=== PATIENT | male | born 1965 | race Caucasian/White ===

== ENCOUNTER 2019-06-17 11:37 | Observation (INO) ==
[2019-06-17] MEDS ORDERED: ZOFRAN IV ONE (11:45)
--- NOTE | 2019-06-17 11:50 | PROVIDER DOCUMENTATION ---
HPI-Abdominal Pain/GI Problem - General Chief Complaint: Nausea/Vomiting Stated Complaint: N/V AND ABD PAIN Time Seen by Provider: 06/17/19 11:40 Source: patient Allergies/Adverse Reactions: Patient Allergies Allergy/AdvReac Type Severity Reaction Status Date / Time No Known Allergies Allergy Verified 06/17/19 12:14 Home Medications: Home Medication List Medication Instructions Recorded Confirmed Last Taken Type Aspirin 81 mg PO DAILY 06/17/19 06/17/19 06/17/19 History Atorvastatin Calcium [Lipitor] 20 mg PO DAILY 06/17/19 06/17/19 06/17/19 History Carvedilol [Coreg] 6.25 mg PO BID 06/17/19 06/17/19 06/17/19 History Clopidogrel Bisulfate [Clopidogrel] 75 mg PO DAILY 06/17/19 06/17/19 06/17/19 History Isosorbide Mononitrate [Isosorbide 30 mg PO QHS 06/17/19 06/17/19 06/16/19 History Mononitrate ER] Naltrexone HCl 50 mg PO DAILY 06/17/19 06/17/19 06/17/19 10:00 History Pantoprazole Sodium 40 mg PO QAM 06/17/19 06/17/19 06/17/19 History - History of Present Illness-ABD Nature of Presenting Problems: 54 YOM PRESENTS WITH C/O N/V/D AND ABDOMINAL PAIN AFTER TAKING NEW MEDICATION NALTREXONE. HE DID DRINK LAST NIGHT BUT REPORTS HE STOPPED AT 630 PM. HE DENIES CP, SOB, FEVER, CHILLS Abdominal Pain Onset Location: reports: generalized abdomen Pain Radiation: reports: no radiation Quality of Pain: reports: aching Severity in ED: reports: moderate Onset/Duration: reports: 4-6 hours ago Timing: reports: still present Activities at Onset: reports: other (NEW MEDICATIONS) Exposure to sick contacts?: No Modifying Factors: improves with: nothing Associated Symptoms: reports: diarrhea, vomiting Last BM: this morning Dark Stools Present?: reports: none noticed Rectal Bleeding: reports: none # of Diarrhea Episodes: 3 Rectal Pain: reports: none # of Vomiting Episodes: 6 Emesis Description: reports: none Bruising or Bleeding Gums?: No Similar Symptoms Previously?: No Recently seen or treated by another doctor?: No Review of Systems - Adult - REVIEW OF SYSTEMS - ADULT Constitutional: reports: no symptoms reported. denies: see HPI, chills, fever, fatique, night sweats, weight gain, weight loss, other Eyes: reports: no symptoms reported. denies: see HPI, discharge, dry eyes, decreased vision, blurred vision, double vision, eye pain, redness, other Ears, Nose, Mouth & Throat: reports: no symptoms reported. denies: see HPI, ear discharge, ear pain, hearing loss, tinnitus, epistaxis, sinus problem, nose pain, loose teeth, mouth/dental pain, mouth swelling, hoarseness, throat pain, throat swelling, other Cardiovascular: reports: no symptoms reported. denies: see HPI, chest pain, edema, heart murmur, irregular heart rate, orthopnea, palpitations, poor circulation, PND, syncope, other Respiratory: reports: no symptoms reported. denies: see HPI, chronic cough, cough, dyspnea on exertion, excessive sputum production, hemoptysis, pleurisy, shortness of breath, wheezing, other Gastrointestinal: reports: see HPI, abdominal pain, diarrhea, nausea, vomiting. denies: no symptoms reported, hematemesis, constipation, difficulty swallowing, frequent heartburn, poor appetite, rectal bleeding, other Genitourinary: reports: no symptoms reported. denies: see HPI, dysuria, discharge, frequency, flank pain, frequent UTI's, hematuria, hesitency, incontinence, urinary retention, urgency, other Musculoskeletal: reports: no symptoms reported. denies: see HPI, bone pain, back pain, frequent leg cramps, joint pain, joint swelling, muscle aches, muscle weakness, neck pain, other Integumentary: reports: no symptoms reported. denies: see HPI, hives, hair loss, itching, mole changes, nail changes, rash, skin sores/ulcer, skin thickening, other Neurological: reports: no symptoms reported. denies: see HPI, ataxia, dizziness/vertigo, headache/migraines, loss of balance, numbness, paresthesia, seizure, slurred speech, syncope, tremors, other Psychiatric: reports: no symptoms reported. denies: see HPI, anxiety, anti- depressant use, alcohol/drug dependence, depression, emotional problems, insomnia, panic attacks, suicidal thoughts, other Endocrine: reports: no symptoms reported. denies: see HPI, change in skin pigment, excessive sweating, goiter, cold intolerance, heat intolerance, increased hunger, increased thirst, polyuria, other Hematologic/Lymphatic: reports: no symptoms reported. denies: see HPI, blood clots, easy bruising, low blood count, lymphedema, prolonged bleeding, swollen lymph nodes, transfusions, other Allergic/Immunologic: reports: no symptoms reported. denies: see HPI, allergic reactions, allergic rhinitis, asthma, eczema, food allergy, frequent infections, hay fever, hives, positive PPD, urticaria, other Past History - Adult - PAST MEDICAL HISTORY-ADULT Review of Records: reports: Nursing Assessment Review, Social history reviewed & non-contributory. Major Childhood Illnesses: reports: Polio Cardiovascular: reports: CAD Respiratory: reports: COPD, other (pneumothorax) Gastrointestinal: reports: GERD Obstetrical/Gynecological: reports: denies history Genitourinary: reports: denies history Musculoskeletal: reports: denies history Neurological: reports: denies history Psychiatric: reports: denies history Endocrine/Immune: reports: denies history Other Conditions: reports: denies history - PRIOR SURGERIES/PROCEDURES Surgical/Procedure History: reports: appendectomy, orthopedic (extremity) (bilat feet), other (fempop bypass) - IMMUNIZATION STATUS Childhood Immunizations: See Nurse Assessment Flu Vaccine: See Nurse Assessment - FAMILY HISTORY Family History: reviewed, not pertinent Physical Exam-General - PHYSICAL EXAM-ADULT Initial Vital Signs Reviewed: Yes - CONSTITUTIONAL General Appearance: alert, no apparent distress - EYES Eyes: PERRL/EOMI - HEAD, EARS, NOSE, MOUTH & THROAT HENMT: normocephalic/atraumatic, moist mucous membranes, normal ENT inspection - NECK Neck: non-tender, full range of motion, supple - RESPIRATORY Respiratory: chest non-tender, lungs clear - CARDIOVASCULAR Cardiovascular: normal peripheral pulses, regular rate, rhythm - GASTROINTESTINAL (ABDOMEN) Abdominal Exam: normal bowel sounds, soft, tenderness (GENERALIZED) - LYMPHATIC Lymphatic: no adenopathy - MUSCULOSKELETAL Back Exam: normal inspection Extremity: normal range of motion, non-tender, normal gait - SKIN Integumentary: normal color, normal turgor, warm/dry - NEUROLOGIC Neurologic: grossly normal - PSYCHIATRIC Psych/Mental Status: normal mood/affect, oriented x 3 Progress - PLAN OF CARE/RESULTS Progress/Plan/Lab Results: Vital Signs - 8 hr 06/17/19 11:40 Temperature 98.3 F Pulse Rate 94 H Respiratory Rate 18 Blood Pressure 120/98 O2 Sat by Pulse Oximetry 100 Orders Category Date Time Status ALCOHOL BLOOD Stat Lab 06/17/19 11:44 Uncollected CBC WITH ELECTRONIC DIFF [HEME] Stat Lab 06/17/19 11:44 Uncollected COMPREHENSIVE METABOLIC PANEL [CHEM] Stat Lab 06/17/19 11:44 Uncollected PROTIME WITH INR [COAG] Stat Lab 06/17/19 11:44 Uncollected PTT [COAG] Stat Lab 06/17/19 11:44 Uncollected Ondansetron [Zofran] Med 06/17/19 11:45 Once 4 mg IV NOW ONE Result Diagrams: 06/17/19 12:22 06/17/19 12:22 - XRAY 1 XRAY Study: Chest Impression: See EMR Report (EXAM: CHEST-2 VIEWS 06/17/2019 HISTORY: COUGH TECHNIQUE: PA and lateral chest COMMENT: There is apical pleural scarring bilaterally. This was present at the time the previous study. There are surgical clips in the right upper chest. These were not present on 10/21/2017. There is apparent COPD. There are granulomata in the right upper lobe and left lower lobe. IMPRESSION: COPD. Electronically signed by Mushtaq Marcus 06/17/2019 2:14 PM) - CT/MRI 1 CT Study: Abdomen, Pelvis Impression: See EMR Report (EXAM: CT ABD/PELVIS W/IV CONT ONLY 06/17/2019 HISTORY: abd pain, TENDERNESS, WBC TECHNIQUE: This exam was performed using automated exposure control, adjustment of mA or kV according to patient size, and/or use of iterative reconstruction technique. COMMENT: There are emphysematous changes in both lung bases. There is a granuloma in the left lower lobe. The appearance of the visualized portion of the chest has not changed significantly since 05/15/2018. There are granulomata in the spleen. The adrenal glands and pancreas are within normal limits. There are no apparent gallstones. The liver is stable in appearance. There may be some fatty change. There are severe atherosclerotic calcifications and noncalcified plaque formation in the infrarenal abdominal aorta. There is occlusion of the common iliac artery on the right and a stent is present in the left common iliac which appears to be patent. These findings were also present on the previous study. Both renal arteries are patent. There is no evidence of hydronephrosis. There is a cortical cyst in the lower pole of the left kidney. The superior mesenteric artery is pa tent as is the celiac artery. There is a small splenule near the inferior tip of the spleen. There is apparent generalized mucosal thickening in the colon. The colon is not distended. There has been previous appendectomy. Pelvis: There is a right axillary femoral graft. This is patent. There is no evidence of free fluid. The urinary bladder is not distended. There is no evidence of significant adenopathy. The regional skeleton is intact. IMPRESSION: Severe atherosclerotic changes as described. Apparent colitis. Electronically signed by Mushtaq Marcus 06/17/2019 2:05 PM) Departure - Departure Date of Disposition Decision: 06/17/19 Time of Disposition Decision: 14:42 DIAGNOSIS: Colitis Disposition: ADMITTED INPATIENT 09 Certified Medical Emergency: Emergent Condition: Stable - Critical Care Note This patient required my direct & personal management of CC.: No Attestation - Physician/ MARVA Attestation Patient care was provided by Advanced Practice Provider:: Yes Advanced Practice Provider:: Mariam Lindquist Advanced Practice Provider documentation review:: The Mid-level provider documentation, treatment plan and medical decision making was reviewed by the physician who agrees with all treatment and medical decision making by the P. The physician spent face to face time with patient:: No Advanced Practice Provider documentation review:: Supervising physician onsite and consulted in the evaluation and care of this patient. The physician did not have a face to face encounter with the patient.
[2019-06-17 12:33] LABS: BASO# 0.03 X1000 (0.0-0.2); BASO% 0.2 % (0.0-0.8); EOS# 0.16 X1000 (0.0-0.7); HEMATOCRIT 44.7 % (42.0-52.0); HEMOGLOBIN 15.3 g/dL (14.0-18.0); IMM GRAN# 0.05 X1000 (0.0-0.04); IMM GRAN% 0.3 % (0.0-0.5); LYMPH# 1.34 X1000 (1.2-3.4); LYMPH% 8.4 % (20.5-51.1); MCH 30.4 PG (27-31); MCHC 34.2 g/dL (33-37); MCV 88.9 FL (81-99); MONO# 1.14 X1000 (0.11-0.59); MONO% 7.1 % (1.7-9.3); MPV 9.6 FL (7.4-10.4); NEUT# 13.31 X1000 (1.4-6.5); PLT 234 X1000 (130-400); RBC 5.03 XMIL (4.7-6.1); RDW 18.4 % (11.5-14.5); WBC 16.03 X1000 (4.8-10.8)
[2019-06-17 12:54] LABS: INR 1.03
[2019-06-17 12:55] LABS: PTT 31.4 Seconds (22.3-41.8)
[2019-06-17 13:00] LABS: AGAP 14; ALBUMIN 4.2 g/dL (3.5-5.0); ALKALINE PHOSPHATASE 187 U/L (32-122); BUN 4 mg/dL (8-22); CHLORIDE 101 mmol/L (98-107); COSMO 281; CREATININE 0.5 mg/dL (0.7-1.2); ESTIMATED GFR > 60; GLUCOSE 145 mg/dL (70-104); GOT 98 U/L (10-34); GPT 49 U/L (10-44); POTASSIUM 3.6 mmol/L (3.5-5.1); SODIUM 141 mmol/L (136-145); TCO2 26 mmol/L (25-35); TOTAL PROTEIN 7.4 g/dL (6.3-8.3)
[2019-06-17] MEDS ORDERED: IMODIUM PO ONE (13:46)
--- NOTE | 2019-06-17 14:07 | Diag Imaging Result Doc PS360 ---
EXAM: CT ABD/PELVIS W/IV CONT ONLY 06/17/2019 HISTORY: abd pain, TENDERNESS, WBC TECHNIQUE: This exam was performed using automated exposure control, adjustment of mA or kV according to patient size, and/or use of iterative reconstruction technique. COMMENT: There are emphysematous changes in both lung bases. There is a granuloma in the left lower lobe. The appearance of the visualized portion of the chest has not changed significantly since 05/15/2018. There are granulomata in the spleen. The adrenal glands and pancreas are within normal limits. There are no apparent gallstones. The liver is stable in appearance. There may be some fatty change. There are severe atherosclerotic calcifications and noncalcified plaque formation in the infrarenal abdominal aorta. There is occlusion of the common iliac artery on the right and a stent is present in the left common iliac which appears to be patent. These findings were also present on the previous study. Both renal arteries are patent. There is no evidence of hydronephrosis. There is a cortical cyst in the lower pole of the left kidney. The superior mesenteric artery is patent as is the celiac artery. There is a small splenule near the inferior tip of the spleen. There is apparent generalized mucosal thickening in the colon. The colon is not distended. There has been previous appendectomy. Pelvis: There is a right axillary femoral graft. This is patent. There is no evidence of free fluid. The urinary bladder is not distended. There is no evidence of significant adenopathy. The regional skeleton is intact. IMPRESSION: Severe atherosclerotic changes as described. Apparent colitis. Electronically signed by Mushtaq Marcus 06/17/2019 2:05 PM
--- NOTE | 2019-06-17 14:16 | Diag Imaging Result Doc PS360 ---
EXAM: CHEST-2 VIEWS 06/17/2019 HISTORY: COUGH TECHNIQUE: PA and lateral chest COMMENT: There is apical pleural scarring bilaterally. This was present at the time the previous study. There are surgical clips in the right upper chest. These were not present on 10/21/2017. There is apparent COPD. There are granulomata in the right upper lobe and left lower lobe. IMPRESSION: COPD. Electronically signed by Mushtaq Marcus 06/17/2019 2:14 PM
[2019-06-17] MEDS ORDERED: FLAGYL 500 MG/NS 500 MG/100 ML IVPB IV ONE (14:29)
[2019-06-17] MEDS ORDERED: CIPRO 400 MG/D5W 400 MG/200 ML IVPB IV SCH (14:30)
[2019-06-17] MEDS ORDERED: CIPRO 400 MG/D5W 400 MG/200 ML IVPB IV ONE (14:44)
[2019-06-17] MEDS ORDERED: NS 1,000 ML IV ONE (14:44)
[2019-06-17] MEDS: CIPRO 400 MG/D5W 400 MG/200 ML IVPB IV SCH (15:05)
[2019-06-17 15:31] LABS: BILIRUBIN URINE 1+ (NEGATIVE); BLOOD URINE NEGATIVE (NEGATIVE); CLARITY SL. CLOUDY (CLEAR); COLOR AMBER; GLUCOSE URINE NEGATIVE (NEGATIVE); KETONE URINE TRACE mg/dL (NEGATIVE); LEUKOCYTES URINE TRACE (NEGATIVE); NITRITE URINE NEGATIVE (NEGATIVE); PROTEIN URINE 1+(30 mg/dL) mg/dL (NEGATIVE); SP GRAVITY URINE 1.005; UROBILINOGEN URINE 4 mg/dL
[2019-06-17 15:32] LABS: URINE RBC <10 /HPF (<10); URINE SOURCE CLEAN CATCH; URINE WBC <10 /HPF (<10)
[2019-06-17] MEDS ORDERED: ZOFRAN IV PRN (16:23)
[2019-06-17] MEDS ORDERED: SODIUM CHLORIDE 0.9% INJ PRN (16:23)
[2019-06-17] MEDS ORDERED: NEXIUM IV SCH (16:45)
[2019-06-17] MEDS: SODIUM CHLORIDE 0.9% INJ SCH (17:34)
[2019-06-17] MEDS: NS 1,000 ML IV SCH (17:34)
[2019-06-17] MEDS: PROTONIX IV SCH (17:34)
[2019-06-17] MEDS: NICODERM PATCH TD SCH (17:35)
[2019-06-17] MEDS: LIBRIUM PO SCH ×2 (17:53→23:30)
[2019-06-17] MEDS ORDERED: BENTYL PO PRN (18:01)
--- NOTE | 2019-06-17 18:29 | HISTORY AND PHYSICAL ---
[employer]: Zohaib Peña. CHIEF COMPLAINT: Nausea, vomiting and diarrhea. HISTORY OF PRESENT ILLNESS: Mr. Watt is a 54-year-old male who presented today with complaints of nausea, vomiting, and severe diarrhea where he was incontinent. The patient states the symptoms started this morning. He believes this may be due to his Naltrexone that he started taking. He has also had some chills. The patient states that he has not had any shortness of breath or any headaches or any dizziness or weakness with this. He denies any fevers. States that he has been having abdominal pain. The patient does have a past medical history of alcohol abuse. He has been in rehab in treatment for his alcohol abuse. However, he still drinks at least 4 to 5 shots a day. The patient also has a history of hypertension, hyperlipidemia, COPD, and known coronary artery disease. The patient denies any problems with his bladder. States that he does not have any hematuria, dysuria, frequency or urgency. The patient denies any blood in the stool or blood in his emesis. CT scan in the ER does show apparent colitis. LABORATORY FINDINGS: Show white blood cell count of 16.03, a BUN of 4, creatinine 0.5, bilirubin of 1.30, AST is 98, ALT of 49, alkaline phosphatase of 187. Plasma alcohol level is negative. There is protein in the urine, bilirubin and trace white blood cell count in the urine also. PAST MEDICAL HISTORY: Alcohol abuse, hypertension, hyperlipidemia, COPD, CAD, colitis, tobacco dependency. PAST SURGICAL HISTORY: Appendectomy. Patient has had multiple surgeries to his femoral arteries. He did have a graft in the right groin that was removed at 1 time because it became infected. He at this time has a right femoral arterial bypass graft in place. He is seen by Dr. Richards. The patient states he did have a colonoscopy done by Dr. Morton in [place] several months ago. FAMILY HISTORY: Significant for heart disease and hypertension. SOCIAL HISTORY: Patient lives with his spouse. He states that he drinks alcohol 4 to 5 shots a day. He smokes 2 packs of cigarettes every day and denies any illicit drug abuse. ALLERGIES: No known drug allergies. HOME MEDICATIONS: Aspirin 81 mg p.o. daily, atorvastatin calcium 20 mg p.o. daily, Coreg 6.25 mg p.o. b.i.d., Plavix 75 mg p.o. daily, isosorbide mononitrate 30 mg p.o. at bedtime, naltrexone 50 mg p.o. daily, pantoprazole sodium 40 mg p.o. q.a.m. LABS AND DIAGNOSTICS: White blood cell count 16.03, red blood cell count 5.03, hemoglobin 15.3, hematocrit 44.7, platelet count is 234,000. PT is 14, INR is 1.03, PTT is 31.4. Sodium is 141, potassium is 3.6, chloride is 101, carbon dioxide 26, anion gap 14, BUN is 4, creatinine is 0.5, estimated GFR greater than 60, glucose is 145, calcium is 9.0, magnesium is 1.5, total bilirubin is 1.30, AST is 98, ALT is 49, alkaline phosphatase is 187. Urinalysis shows 1+ protein, 1+ bilirubin and trace white blood cell count. Plasma alcohol level is negative. Chest x-ray shows COPD. CT of the abdomen and pelvis shows colitis. REVIEW OF SYSTEMS: A 10 point review of systems has been obtained and are negative except what is stated above in the HPI. PHYSICAL EXAMINATION: VITAL SIGNS: Temperature 98.5 degrees, pulse rate 98, respiratory rate 18, blood pressure is 122/94, O2 saturation is 100% on room air. Weight is 106 pounds, height is 5 feet 5. GENERAL: This is a 54-year-old male. He is lying in the ER stretcher. He is in no acute distress at present time. He is a very thin man. HEENT: Atraumatic, normocephalic. Pupils equal, round, reactive to light. Extraocular movements are intact. Sclerae is jaundice. Mucous membranes are moist. NECK: Supple. No lymphadenopathy. Trachea is midline. No JVD. No thyromegaly. No bruits. CARDIOVASCULAR: Regular rate and rhythm. No murmurs, gallops, or rubs appreciated. RESPIRATORY: Lung sounds are clear with equal chest excursion. Respirations are nonlabored with no accessory muscle usage. GI: Abdomen is soft and tender. It is nondistended and bowel sounds are present x4. NEURO: Cranial nerves 2-12 are intact. The patient is awake, alert, oriented, able to follow all commands. Able answer my questions appropriately. MUSCULOSKELETAL: Full strength noted. The patient does have a brace noted to the right ankle. The patient states he had a fall several weeks back and had a fracture noted. He has since been in a brace. EXTREMITIES: No clubbing, cyanosis, or edema. DP and PT pulses are present and palpable. SKIN: Warm, dry and intact. It is jaundiced all over. There are no rashes or bruises noted. ASSESSMENT AND PLAN: 1. Colitis. We admitted this patient to the medical floor. We are going to place the patient on antibiotics for his colitis. We are providing him with nausea medication, I am going to keep him NPO at this time until his nausea subsides. Start him on IV fluid hydration. 2. Alcohol abuse. We are going to provide him with IV fluid hydration. I am going to order him a banana bag daily. We will monitor him for withdrawal symptoms. 3. Chronic obstructive pulmonary disease. Start this patient on nebulizer treatments. We will provide him with oxygen as needed. 4. Hypertension. I restarted the patient's home blood pressure medications. 5. Coronary artery disease. I have started this patient back on his aspirin and his Plavix. 6. Deep venous thrombosis prophylaxis. I placed this patient with SCDs. He is on aspirin and Plavix at home. We were going to continue these. 7. Gastrointestinal prophylaxis. I started this patient on IV Protonix. Right now he is unable to take p.o. as he is having nausea and vomiting. 8. Tobacco dependency. Start this patient with nicotine patch daily and provided smoking cessation information. We are going to admit this patient to the medical floor, place him on telemetry. We are going to keep him NPO at this present time until his nausea, vomiting sides, we are providing him with Zofran and Phenergan for his vomiting. We started him on IV fluid hydration and also give him a banana bag daily and we are going to monitor him for withdrawal symptoms. We have started him on Librium. I provided him with breathing treatments for his COPD. We have restarted all his home medications and he is on IV antibiotics for his colitis. All further recommendations pending hospital course. Dictated by FRANSISCO Zaragoza for Saul Burden MD cc: Zohaib BOB
[2019-06-17] MEDS: NORCO-5 PO PRN ×2 (18:47→21:56)
--- NOTE | 2019-06-17 19:00 | HISTORY AND PHYSICAL ---
ADDENDUM: Patient seen, examined by myself. Full note dictated and discussed with nurse practitioner. Patient presented the hospital with nausea, vomiting, diarrhea. Denies any blood in the stool. Denies any dysuria or frequency. The patient does have a history of colitis approximately 3 years ago with undetermined origin. Had a colonoscopy approximately 3 months ago and they note this was normal did have some polyps but they deny any knowledge of diverticulosis. Will admit him to the hospital, place him on antibiotics, IV fluids, keep him on clear liquids tonight, advance diet as tolerated, he certainly could have ischemic colitis given his long history of smoking and alcoholism although thankfully CT 3 months ago was normal. We will continue to follow. cc: Saul Burden MD
[2019-06-17] MEDS: DUONEB (A & A) INH SCH (20:29)
[2019-06-17] MEDS: COREG PO SCH (20:37)
[2019-06-17] MEDS: PHENERGAN IV PRN (20:38)
[2019-06-17] MEDS ORDERED: IMDUR PO SCH (21:00)
[2019-06-17] MEDS: FLAGYL 500 MG/NS 500 MG/100 ML IVPB IV SCH (21:57)
[2019-06-18] MEDS: CIPRO 400 MG/D5W 400 MG/200 ML IVPB IV SCH ×2 (02:42→14:56)
[2019-06-18] MEDS: NS 1,000 ML IV SCH ×2 (02:43→11:52)
[2019-06-18] MEDS: DUONEB (A & A) INH SCH ×3 (03:28→15:21)
[2019-06-18] MEDS: FLAGYL 500 MG/NS 500 MG/100 ML IVPB IV SCH ×3 (03:47→16:20)
[2019-06-18] MEDS: LIBRIUM PO SCH ×2 (05:25→10:37)
[2019-06-18 07:01] LABS: HEMOGLOBIN 11.3 g/dL (14.0-18.0); RBC 3.86 XMIL (4.7-6.1); WBC 8.28 X1000 (4.8-10.8)
[2019-06-18 07:02] LABS: BASO# 0.02 X1000 (0.0-0.2); BASO% 0.2 % (0.0-0.8); EOS# 0.12 X1000 (0.0-0.7); EOS% 1.4 % (0.0-10.0); IMM GRAN# 0.01 X1000 (0.0-0.04); IMM GRAN% 0.1 % (0.0-0.5); LYMPH# 1.27 X1000 (1.2-3.4); LYMPH% 15.3 % (20.5-51.1); MCH 29.3 PG (27-31); MCHC 32.3 g/dL (33-37); MCV 90.7 FL (81-99); MONO# 0.76 X1000 (0.11-0.59); MONO% 9.2 % (1.7-9.3); NEUT% 73.8 % (42.2-75.2); PLT 172 X1000 (130-400)
[2019-06-18 07:26] LABS: AGAP 9; BUN 4 mg/dL (8-22); CALCIUM 7.7 mg/dL (8.8-10.2); CHLORIDE 105 mmol/L (98-107); COSMO 272; CREATININE 0.6 mg/dL (0.7-1.2); ESTIMATED GFR > 60; GLUCOSE 88 mg/dL (70-104); MAGNESIUM 1.3 mg/dL (1.5-2.7); POTASSIUM 3.2 mmol/L (3.5-5.1); SODIUM 138 mmol/L (136-145); TCO2 25 mmol/L (25-35)
[2019-06-18] MEDS ORDERED: KLOR-CON PO ONE ×2 (07:30→07:49)
[2019-06-18] MEDS ORDERED: PLAVIX PO SCH (09:00)
[2019-06-18] MEDS ORDERED: M.V.I.-12 10 ML, FOLIC ACID 1 MG, MAGNESIUM SULFATE 1 GM, THIAMINE 100 MG in NS 1,000 ML IV SCH (09:00)
[2019-06-18] MEDS ORDERED: ASPIRIN PO SCH (09:00)
[2019-06-18] MEDS ORDERED: LIPITOR PO SCH (09:00)
[2019-06-18] MEDS: COREG PO SCH (10:37)
[2019-06-18] MEDS: NICODERM PATCH TD SCH (10:38)
[2019-06-18] MEDS: PHENERGAN IV PRN (10:38)
[2019-06-18] MEDS: NORCO-5 PO PRN (11:50)
--- NOTE | 2019-06-18 14:31 | DISCHARGE SUMMARY ---
ADMISSION DATE: 06/17/2019 DISCHARGE DATE: 06/18/2019 DISCHARGE DIAGNOSES: 1. Colitis, appears resolved. 2. Alcohol abuse. 3. Chronic obstructive pulmonary disease stable. 4. Hypertension. 5. Known coronary artery disease. CONSULTATIONS: None. PROCEDURES: None. BRIEF HOSPITAL COURSE: The patient is a 54-year-old male who presented to the hospital with abdominal pain, nausea, vomiting, and diarrhea. CT showed colitis. Most likely this is viral colitis as he has improved overnight. He is eating and drinking without any difficulty and therefore he will be discharged home. DISCHARGE INSTRUCTIONS: Patient will be discharged home to follow up outpatient with treatment facility of choice. Discussed with patient the importance of stopping alcohol ingestion, stopping smoking and to follow his blood pressures which were mildly elevated. DISPOSITION: Patient will be discharged home. No changes made on his chronic home medications. Again, discussed with patient, stop smoking, stop drinking. TIME SPENT: Greater than 30 minutes was spent in total care. cc: Saul Burden MD
[2019-06-18 16:14] VITALS: BP 111/72
[2019-06-18] MEDS: SODIUM CHLORIDE 0.9% INJ SCH (16:20)
[2019-06-18] MEDS: PROTONIX IV SCH (16:20)
== END 2019-06-18 17:14 | disposition home or self-care (01) ==
LOC: P.ED 11:37 → P.MEDSURG 11:38 → INTOOBSV 11:38
PROVIDERS: ATTEND Family Medicine